=== PATIENT | female | born 1990 | race Caucasian/White ===

== ENCOUNTER 2018-12-13 21:55 | Emergency (ER) | payer OTHER ==
--- NOTE | 2018-12-13 22:10 | EDM.PDOC ---
ED HPI GENERAL MEDICAL PROBLEM - General Chief Complaint: General Stated Complaint: POST OP ISSUE Time Seen by Provider: 12/13/18 21:55 Source of Information: Reports: Patient History Limitations: Reports: No Limitations - History of Present Illness INITIAL COMMENTS - FREE TEXT/NARRATIVE: Patient comes into the emergency department with abdominal drainage. Patient had a approximately 2 weeks ago. She states she's had no complications or concerns until today. She noticed a few hours ago that she had a significant amount of drainage on the left side of her incision. She denies any fever, nausea, vomiting, or pain. She has not noticed any foul smell, pus, bleeding, redness, or warmth. Onset: Sudden Improves with: Reports: None Worsens with: Reports: None Associated Symptoms: Reports: No Other Symptoms - Related Data Allergies Allergy/AdvReac Type Severity Reaction Status Date / Time No Known Allergies Allergy Verified 12/13/18 22:16 Home Meds: Home Meds Levothyroxine 175 mcg PO ASDIRECTED 12/13/18 [History] Levothyroxine 200 mcg PO ASDIRECTED 12/13/18 [History] ED ROS GENERAL - Review of Systems Review Of Systems: See Below Constitutional: Reports: No Symptoms HEENT: Reports: No Symptoms Respiratory: Reports: No Symptoms Cardiovascular: Reports: No Symptoms Endocrine: Reports: No Symptoms GI/Abdominal: Reports: Other (abdominal incision with drainage on the left side.) Musculoskeletal: Reports: No Symptoms Skin: Reports: No Symptoms Neurological: Reports: No Symptoms Psychiatric: Reports: No Symptoms Hematologic/Lymphatic: Reports: No Symptoms Immunologic: Reports: No Symptoms ED EXAM, GENERAL - Physical Exam Exam: See Below Exam Limited By: No Limitations General Appearance: Alert, WD/WN, No Apparent Distress Head: Atraumatic, Normocephalic Neck: Normal Inspection, Supple, Non-Tender, Full Range of Motion Respiratory/Chest: No Respiratory Distress, Lungs Clear, No Accessory Muscle Use , Chest Non-Tender Cardiovascular: Normal Peripheral Pulses, Regular Rate, Rhythm Peripheral Pulses: 2+: Radial (L), Radial (R), Dorsalis Pedis (L), Dorsalis Pedis (R) GI/Abdominal: Normal Bowel Sounds, Soft, Non-Tender, No Distention, Other ( Incision is well approximated. Redness is noted over the incision site on approximately 1 inch length. No warmth is noted large amount of serosanguineous fluid is noted. Foul smell is noted.no pus is present incision well approximated. drainage noted on approximately 1inch portion left side of incision. ) Back Exam: Normal Inspection, Full Range of Motion Extremities: Normal Inspection, Normal Range of Motion Neurological: Alert, Oriented Psychiatric: Normal Affect, Normal Mood Skin Exam: Warm, Dry, Intact, Normal Color Course - Orders/Labs/Meds Orders: Active Orders 24 hr Category Date Time Status Abdomen Pelvis wo Cont [CT] Stat Exams 12/13/18 22:02 Ordered CBC WITH AUTO DIFF [HEME] Stat Lab 12/13/18 22:02 Ordered COMPREHENSIVE METABOLIC PN,CMP [CHEM] Stat Lab 12/13/18 22:03 Ordered CULTURE WOUND [RM] Stat Lab 12/13/18 22:02 Ordered Departure - Departure Time of Disposition: 11:30 Disposition: Home, Self-Care 01 Condition: Good Clinical Impression: Seroma after procedure, Infection of obstetric surgical wound, - Discharge Information *PRESCRIPTION DRUG MONITORING PROGRAM REVIEWED*: Not Applicable *COPY OF PRESCRIPTION DRUG MONITORING REPORT IN PATIENT ADRIANA: Not Applicable Instructions: Wound Infection Forms: ED Department Discharge Additional Instructions: 1. Rest 2. Remain NPO starting at midnight 3. Report to the emergency department at 8 AM- 12/14/2018. [facility] is expecting you and Dr. De La Fuente will be completing your wound drainage procedure. 4. If you become ill during the night- excessive nausea/vomiting, fever, rapid heart rate, or bleeding. Report to the Emergency department immediately and do not wait till the am. 5. Keep the wound clean and as dry as possible. No soaking in a bath or going in any hot tubs. 6. Can take Tylenol as needed for any pain or discomfort 7. Can use ice if area does become tender. Ice for 20 mins at a time. 8. Call with any questions or concerns - My Orders Last 24 Hours: My Active Orders 12/13/18 22:02 Abdomen Pelvis wo Cont [CT] Stat CBC WITH AUTO DIFF [HEME] Stat CULTURE WOUND [RM] Stat 12/13/18 22:03 COMPREHENSIVE METABOLIC PN,CMP [CHEM] Stat - Assessment/Plan Last 24 Hours: My Active Orders 12/13/18 22:02 Abdomen Pelvis wo Cont [CT] Stat CBC WITH AUTO DIFF [HEME] Stat CULTURE WOUND [RM] Stat 12/13/18 22:03 COMPREHENSIVE METABOLIC PN,CMP [CHEM] Stat Assessment:: 1. wound infection post 2 weeks ago Plan: 1. Labs completed in ER 2. CT completed in ER. 6.93x2.76 cm seroma in the lower rectus abdominis muscle. 3. Wound cleansing completed in ER 4. Rocephin 1gm IM given in ER 5. Wound culture completed 6. Consult completed with general surgeon at [facility] Dr. De La Fuente who recommends the pt present to the ER in [place] on 12/14/2018 0800 for a wound drainage procedure. Pt is advised to be NPO as of 0000 and to be at the ER by 0800. 7. Pt was discharged with wound cleansing supplies to help contain the large amount of drainage throughout the night. 8. All questions and concerns were addressed prior to discharge. 9. All medical records and CT scan faxed to [phone]
[2018-12-13 22:52] LABS: CHLORIDE,CL 105 mmol/L (98-107); SODIUM,NA 141 mmol/L (136-145)
[2018-12-13 22:54] LABS: ANION GAP 15.2 mmol/L (10-20)
[2018-12-13] MEDS ORDERED: cefTRIAXone 1 GM Vial IVPUSH ONE (23:03)
[2018-12-13] MEDS ORDERED: Lidocaine 1% 2 ML ONE (23:12)
[2018-12-13] MEDS ORDERED: cefTRIAXone 1 GM Vial IM ONE (23:29)
== END 2018-12-13 23:40 | disposition home or self-care (01) ==
LOC: VM.ED 21:55
DX: O90.2 Hematoma of obstetric wound (principal)
CPT/HCPCS: 36415; 74176; 80053; 85025; 87070; 87077; 96372; 99284; J0696

== ENCOUNTER 2018-12-15 11:10 | Emergency (ER) | payer OTHER ==
--- NOTE | 2018-12-15 11:31 | EDM.PDOC ---
ED HPI GENERAL MEDICAL PROBLEM - General Chief Complaint: Skin Complaint Stated Complaint: Dressing Change Time Seen by Provider: 12/15/18 11:13 Source of Information: Reports: Patient, RN, RN Notes Reviewed History Limitations: Reports: No Limitations - History of Present Illness INITIAL COMMENTS - FREE TEXT/NARRATIVE: Patient presents the emergency room at [facility] for a dressing change. The patient had a on November 28 and shortly after the patient was discharged she had noticed some drainage from the section site on 12/13/2018. The patient was seen 12/13/2018 after being in this ED in [facility] for wound care for wound dehiscence. The patient is currently on antibiotics. The patient has not had any fevers or chills. No complications wit delivery on 11/28/2018. Overall the patient is doing well. Onset: Unknown/Unsure - Related Data Allergies Allergy/AdvReac Type Severity Reaction Status Date / Time No Known Allergies Allergy Verified 12/13/18 22:16 Home Meds: Home Meds Levothyroxine 175 mcg PO ASDIRECTED 12/13/18 [History] Levothyroxine 200 mcg PO ASDIRECTED 12/13/18 [History] Past Medical History Endocrine/Metabolic History: Reports: Hypothyroidism - Past Surgical History Female Surgical History: Reports: Section ED ROS GENERAL - Review of Systems Review Of Systems: See Below Constitutional: Denies: Fever, Chills Respiratory: Denies: Shortness of Breath, Cough Cardiovascular: Denies: Chest Pain, Palpitations GI/Abdominal: Denies: Abdominal Pain, Nausea, Vomiting Skin: Reports: Wound (Left lower abd wound dehiscence) Neurological: Reports: No Symptoms ED EXAM, SKIN/RASH Exam: See Below Exam Limited By: No Limitations General Appearance: Alert, No Apparent Distress Respiratory/Chest: No Respiratory Distress, Lungs Clear, Normal Breath Sounds Cardiovascular: Normal Peripheral Pulses, Regular Rate, Rhythm Peripheral Pulses: 2+: Radial (L), Radial (R) GI/Abdominal: Normal Bowel Sounds, Soft, Non-Tender Neurological: Alert, Oriented Skin: Warm, Dry, Normal Color, Wound/Incision (0.5 horizontal wound dehiscence left lower abd; moderate amount of serosangunous drainage; no evidence of infection; non-tender; no foul odor; surrounding skin normal; no erythema) Course - Vital Signs Last Recorded V/S: Last Vital Signs Temp 36.6 C 12/15/18 11:13 Pulse 68 12/15/18 11:13 Resp 16 12/15/18 11:13 BP 106/67 12/15/18 11:13 Pulse Ox 97 12/15/18 11:13 Departure - Departure Time of Disposition: 11:31 Disposition: Home, Self-Care 01 Condition: Good Clinical Impression: Wound dehiscence, - Discharge Information *PRESCRIPTION DRUG MONITORING PROGRAM REVIEWED*: Not Applicable *COPY OF PRESCRIPTION DRUG MONITORING REPORT IN PATIENT ADRIANA: Not Applicable Instructions: Wound Dehiscence Referrals: Yuan Camejo PA-C [Ordering Only Provider] - Forms: ED Department Discharge Additional Instructions: 1. Stay well hydrated and rest 2. If drainage gets worse before tomorrow, may return for another dressing change 3. Continue with antibiotics 4. Call us with any questions or concerns - Problem List Review Problem List Initiated/Reviewed/Updated: Yes - Assessment/Plan Assessment:: Wound Dehiscence Plan: Xeroform and dressing changes today. Looks to be healing well. Recommend continued dressing changes until wound have fully healed. Patient will see her PCP tomorrow for a recheck and dressing change.
== END 2018-12-15 11:39 | disposition home or self-care (01) ==
LOC: VM.ED 11:10
DX: O90.0 Disruption of cesarean delivery wound (principal); E03.9 Hypothyroidism, unspecified
CPT/HCPCS: 99282